=== PATIENT | female | born 1995 | race Hispanic/Latino ===

== ENCOUNTER → 2017-07-04 | Outpatient (CLI) | payer BC ==
[2017-07-04 11:10] LABS: APPEARANCE,URINE Clear (CLEAR); BILIRUBIN,URINE Negative (NEGATIVE); COLOR,URINE Yellow (YELLOW); GLUCOSE, URINE (UA) Negative (NEGATIVE); KETONES,URINE Trace mg/dL (NEGATIVE); LEUKOCYTE ESTERASE ,URINE Negative (NEGATIVE); NITRATE,URINE Negative (NEGATIVE); OCCULT BLOOD,URINE Trace (NEGATIVE); PROTEIN,URINE Negative (NEGATIVE)
[2017-07-04 11:12] LABS: BASOPHILS % (AUTO) 0.4 % (0.0-5.0); EOSINOPHILS % (AUTO) 1.5 % (0.0-8.0); HEMATOCRIT 40.9 % (36-48); LYMPHOCYTES % (AUTO) 26.8 % (21.0-51.0); MEAN CORPUSCULAR HEMOGLOBIN 32.3 pg (27.0-33.0); MEAN CORPUSCULAR VOLUME 94.8 fL (80-100); MONOCYTES % (AUTO) 6.8 % (3.0-13.0); NEUTROPHILS % (AUTO) 64.5 % (40.0-77.0); PLATELET COUNT (AUTO) 224 K/uL (130-400); RED BLOOD CELL COUNT(AUTO) 4.32 MIL/uL (4.00-5.50); RED CELL DISTRIBUTION WIDTH 12.5 % (11.0-15.5); WHITE BLOOD COUNT (AUTO) 8.8 K/uL (4.8-10.8)
[2017-07-04 11:12] LABS: HCG,QUAL RESULT NEGATIVE (NEGATIVE)
[2017-07-04 11:18] LABS: AMPHET/METH SCREEN,URINE POSITIVE (NEGATIVE); BARBITURATE SCREEN, URINE NEGATIVE (NEGATIVE); BENZODIAZEPINES SCREEN,URINE NEGATIVE (NEGATIVE); CANNABINOID SCREEN,URINE NEGATIVE (NEGATIVE); COCAINE SCREEN,URINE NEGATIVE (NEGATIVE); OPIATE SCREEN,URINE NEGATIVE (NEGATIVE); PHENCYCLIDINE SCREEN,URINE NEGATIVE (NEGATIVE)
[2017-07-04 11:25] LABS: HEMOGLOBIN A1C 5.3 % (4.0-6.0)
[2017-07-04 11:34] LABS: ALBUMIN 3.6 g/dL (3.5-5.0); BILIRUBIN,TOTAL 0.4 mg/dL (0.2-1.0); CREATININE 0.8 mg/dL (0.5-1.5); POTASSIUM 4.5 mmol/L (3.5-5.1); THYROID STIMULATING HORMONE 0.83 uIU/mL (0.36-3.74); TOTAL PROTEIN, SERUM 6.9 g/dL (6.0-8.3)
[2017-07-04 11:38] LABS: BACTERIA,URINE Few /HPF (None Seen); RBC,URINE 0-1 /HPF (0-1); WBC,URINE 0-1 /HPF (0-1)
== END | disposition home or self-care (01) ==
LOC: LAB 10:09
PROVIDERS: ATTEND Psychiatry & Neurology Psychiatry
DX: Z01.818 Encounter for other preprocedural examination (principal); Z79.899 Other long term (current) drug therapy
CPT/HCPCS: 36415; 80053; 80061; 80305; 81001; 81025; 83036; 84443; 85025; 93005

== ENCOUNTER → 2018-10-19 | Outpatient (CLI) | payer BC ==
[2018-10-19 12:00] LABS: MEAN CORPUSCULAR HEMOGLOBIN 32.7 pg (27.0-33.0); MEAN CORPUSCULAR HGB CONC 34.1 g/dL (32.0-36.0); PLATELET COUNT (AUTO) 207 K/uL (130-400); RED BLOOD CELL COUNT(AUTO) 4.06 MIL/uL (4.00-5.50); RED CELL DISTRIBUTION WIDTH 12.7 % (11.0-15.5); WHITE BLOOD COUNT (AUTO) 8.5 K/uL (4.8-10.8)
[2018-10-19 12:01] LABS: HCG,QUAL RESULT NEGATIVE (NEGATIVE)
[2018-10-19 12:08] LABS: AMPHET/METH SCREEN,URINE NEGATIVE (NEGATIVE); BARBITURATE SCREEN, URINE NEGATIVE (NEGATIVE); BENZODIAZEPINES SCREEN,URINE NEGATIVE (NEGATIVE); CANNABINOID SCREEN,URINE NEGATIVE (NEGATIVE); COCAINE SCREEN,URINE NEGATIVE (NEGATIVE); OPIATE SCREEN,URINE NEGATIVE (NEGATIVE); PHENCYCLIDINE SCREEN,URINE NEGATIVE (NEGATIVE)
[2018-10-19 12:12] LABS: BASOPHILS % (AUTO) 0.6 % (0.0-5.0); LYMPHOCYTES % (AUTO) 32.6 % (21.0-51.0); MONOCYTES % (AUTO) 6.8 % (3.0-13.0)
[2018-10-19 12:27] LABS: BILIRUBIN,TOTAL 1.1 mg/dL (0.2-1.0)
[2018-10-19 12:29] LABS: ALBUMIN 3.5 g/dL (3.5-5.0); CREATININE 0.7 mg/dL (0.5-1.5); POTASSIUM 4.5 mmol/L (3.5-5.1); THYROID STIMULATING HORMONE 1.62 uIU/mL (0.36-3.74); TOTAL PROTEIN, SERUM 6.5 g/dL (6.0-8.3)
== END | disposition home or self-care (01) ==
LOC: LAB 10:48
PROVIDERS: ATTEND Psychiatry & Neurology Psychiatry
DX: Z79.899 Other long term (current) drug therapy (principal)
CPT/HCPCS: 36415; 80053; 80061; 80305; 81025; 82306; 82607; 82746; 84443; 85025; 93005

== ENCOUNTER → 2020-02-22 | Outpatient (CLI) | payer BC, OTHER ==
[2020-02-22 10:27] LABS: BASOPHILS % (AUTO) 0.5 % (0.0-5.0); EOSINOPHILS % (AUTO) 0.7 % (0.0-8.0); HEMATOCRIT 40.5 % (36-48); LYMPHOCYTES % (AUTO) 30.3 % (21.0-51.0); MEAN CORPUSCULAR HEMOGLOBIN 32.7 pg (27.0-33.0); MEAN CORPUSCULAR HGB CONC 34.1 g/dL (32.0-36.0); MONOCYTES % (AUTO) 5.7 % (3.0-13.0); NEUTROPHILS % (AUTO) 62.7 % (40.0-77.0); PLATELET COUNT (AUTO) 252 K/uL (130-400); RED BLOOD CELL COUNT(AUTO) 4.22 MIL/uL (4.00-5.50); RED CELL DISTRIBUTION WIDTH 11.8 % (11.0-15.5); WHITE BLOOD COUNT (AUTO) 7.4 K/uL (4.8-10.8)
[2020-02-22 10:48] LABS: APPEARANCE,URINE Clear (CLEAR); BILIRUBIN,URINE Negative (NEGATIVE); COLOR,URINE Yellow (YELLOW); GLUCOSE, URINE (UA) Negative (NEGATIVE); KETONES,URINE Negative (NEGATIVE); LEUKOCYTE ESTERASE ,URINE Negative (NEGATIVE); NITRATE,URINE Negative (NEGATIVE); OCCULT BLOOD,URINE Small (NEGATIVE); PH,URINE 5.5 (5.0-8.0); PROTEIN,URINE Negative (NEGATIVE); UROBILINOGEN,URINE 0.2 mg/dL (0.2-1.0)
[2020-02-22 11:06] LABS: ALBUMIN 3.7 g/dL (3.5-5.0); BACTERIA,URINE Rare /HPF (None Seen); RBC,URINE 0-1 /HPF (0-1); SQUAMOUS EPITHELIAL CELL,UR Rare /HPF (0-2); TOTAL PROTEIN, SERUM 7.1 g/dL (6.0-8.3); WBC,URINE 0-1 /HPF (0-1)
[2020-02-22 11:10] LABS: BILIRUBIN,TOTAL 1.3 mg/dL (0.2-1.0); CREATININE 0.7 mg/dL (0.5-1.5); THYROID STIMULATING HORMONE 1.49 uIU/mL (0.36-3.74)
[2020-02-22 11:49] LABS: BARBITURATE SCREEN, URINE NEGATIVE (NEGATIVE)
[2020-02-22 11:50] LABS: AMPHET/METH SCREEN,URINE NEGATIVE (NEGATIVE); BENZODIAZEPINES SCREEN,URINE NEGATIVE (NEGATIVE); COCAINE SCREEN,URINE NEGATIVE (NEGATIVE)
[2020-02-22 11:51] LABS: CANNABINOID SCREEN,URINE NEGATIVE (NEGATIVE); OPIATE SCREEN,URINE NEGATIVE (NEGATIVE); PHENCYCLIDINE SCREEN,URINE NEGATIVE (NEGATIVE)
[2020-02-22 13:41] LABS: HEMOGLOBIN A1C 5.3 % (4.0-6.0)
== END | disposition home or self-care (01) ==
LOC: LAB 08:58
PROVIDERS: ATTEND Psychiatry & Neurology Psychiatry
DX: Z79.899 Other long term (current) drug therapy (principal)
CPT/HCPCS: 36415; 80053; 80061; 80305; 81001; 83036; 84443; 85025; 93005